=== PATIENT | female | born 1980 | race Two or more races ===

== ENCOUNTER 2019-06-04 18:27 | Emergency (ER) | payer MEDICAID ==
[~2019-06-04] VITALS: Ht 157.5 cm; Wt 127.1 kg
--- NOTE | 2019-06-04 19:55 | NUR ---
SUBOXONE ORDERED FROM PHARMACY.
[2019-06-04] MEDS ORDERED: PLEASE ENTER ALLERGIES MC SCH (20:00)
[2019-06-04] MEDS ORDERED: SUBOXONE (20:14)
[2019-06-04] MEDS ORDERED: VENL150T PO (20:14)
[2019-06-04] MEDS ORDERED: ATEN-104 PO (20:14)
[2019-06-04] MEDS ORDERED: DIAZ5TAB4 PO (20:14)
[2019-06-04] MEDS ORDERED: TAMO20TA PO (20:14)
[2019-06-04] MEDS ORDERED: GABA300C10 PO (20:14)
[2019-06-04] MEDS ORDERED: IBUP-1222 PO (20:14)
[2019-06-04 20:19] VITALS: BP 121/79
[2019-06-04] MEDS: BUPRENORPHINE/NALOXONE 8-2MG SL SCH ×2 (20:20→20:21)
--- NOTE | 2019-06-04 20:25 | NUR ---
SUBOXONE GIVEN PER ORDER.
== END 2019-06-04 20:34 | disposition home or self-care (01) ==
LOC: ED 20:01
DX: R42 Dizziness and giddiness (principal); H53.8 Other visual disturbances; Z76.0 Encounter for issue of repeat prescription; I10 Essential (primary) hypertension; Z85.3 Personal history of malignant neoplasm of breast
CPT/HCPCS: 99283; J0574